=== PATIENT | female | born 1980 | race Caucasian/White ===

== ENCOUNTER → 2018-10-30 | Outpatient (CLI) | payer BC ==
[2018-10-30] MEDS: IOHEXOL 300MG/ML 150 ML BTL (10:58)
[2018-10-30] MEDS: SOD CHLORIDE 0.9% 100 ML (10:59)
== END | disposition home or self-care (01) ==
LOC: C/S 09:54
DX: R10.12 Left upper quadrant pain (principal)
CPT/HCPCS: 74170